=== PATIENT | female | born 1955 | race Caucasian/White ===

== ENCOUNTER → 2023-09-05 | Outpatient (CLI) | payer MEDICARE ==
[2023-09-05 16:20] LABS: ALT 61 U/L (8-44); AST 84 U/L (13-35); Albumin 4.1 g/dL (3.8-4.9); Albumin/Globulin Ratio 1.28 Ratio (1.60-3.17); Alkaline Phosphatase 73 U/L (41-126); Amylase 43 U/L (23-121); BUN/Creat Ratio 25.14 Ratio (12.00-20.00); Blood Urea Nitrogen 17.6 mg/dL (9.0-27.0); Calcium 10.1 mg/dL (8.7-10.3); Carbon Dioxide 27.1 mmol/L (21.6-31.8); Chloride 106 mmol/L (96-109); Globulin 3.2 g/dL (1.6-3.3); Glucose 117 mg/dL (70-110); Lipase 31 U/L (14-63); Potassium 4.9 mmol/L (3.5-5.5); Sodium 142 mmol/L (135-145); Total Bilirubin 0.5 mg/dL (0.3-1.2); Total Protein 7.3 g/dL (6.2-8.2)
[2023-09-05 16:25] LABS: Hepatitis A Antibody IgM Nonreactive (Nonreactive); Hepatitis B Core IgM Nonreactive (Nonreactive); Hepatitis B Surface Antigen Nonreactive (Nonreactive); Hepatitis C IgG Antibody Nonreactive (Nonreactive)
== END | disposition home or self-care (01) ==
LOC: LABWHC1 08:38
PROVIDERS: ATTEND Nurse Practitioner Gerontology
DX: R74.01 Elevation of levels of liver transaminase levels (principal)
CPT/HCPCS: 36415; 80053; 80074; 82150; 83690

== ENCOUNTER → 2023-10-01 | Outpatient (CLI) | payer MEDICARE ==
[2023-10-01 18:42] LABS: Basophils # (A) 0.11 X 10*3/uL (0.00-0.10); Basophils % (A) 1.3 %; Eosinophils # (A) 0.25 X 10*3/uL (0.04-0.35); Eosinophils % (A) 2.9 %; HCT 45.5 % (37.2-46.3); HGB 13.5 g/dL (12.0-15.0); Lymphocytes % (A) 23.2 %; MCH 27.5 pg (27.0-32.0); MCHC 29.7 g/dL (32.0-37.0); MCV 92.7 FL (80.0-97.0); Mean Platelet Volume 12.1 FL (9.5-12.2); Monocytes # (A) 0.68 X 10*3/uL (0.20-1.00); Monocytes % (A) 7.9 %; NRBC Per 100 WBC 0 X 10*3/uL (0.00-0.01); Neutrophils # (A) 5.55 X 10*3/uL (1.80-7.70); Neutrophils % (A) 64.4 %; Platelet Count 223 X 10*3/uL (140-440); RBC 4.91 X 10*6/uL (4.10-5.20); RDW 16.3 % (11.5-14.5); WBC 8.62 X 10*3/uL (4.50-10.00)
[2023-10-01 20:25] LABS: ALT 32 U/L (8-44); AST 49 U/L (13-35); Albumin 4.3 g/dL (3.8-4.9); Albumin/Globulin Ratio 1.43 Ratio (1.60-3.17); Alkaline Phosphatase 83 U/L (41-126); BUN/Creat Ratio 26.57 Ratio (12.00-20.00); Blood Urea Nitrogen 18.6 mg/dL (9.0-27.0); Calcium 10.6 mg/dL (8.7-10.3); Carbon Dioxide 24.6 mmol/L (21.6-31.8); Chloride 103 mmol/L (96-109); Glucose 113 mg/dL (70-110); Potassium 4.8 mmol/L (3.5-5.5); Sodium 140 mmol/L (135-145); Total Bilirubin 0.5 mg/dL (0.3-1.2); Total Protein 7.3 g/dL (6.2-8.2)
== END | disposition home or self-care (01) ==
LOC: LABWHC1 08:34
DX: M06.00 Rheumatoid arthritis without rheumatoid factor, unspecified site (principal)
CPT/HCPCS: 36415; 80053; 85025; 86140

== ENCOUNTER → 2023-11-30 | Outpatient (CLI) | payer MEDICARE | END | disposition home or self-care (01) | LOC: LABWHC1 11:30 | PROVIDERS: ATTEND Specialist | DX: Z53.9 Procedure and treatment not carried out, unspecified reason (principal) ==

== ENCOUNTER → 2024-03-30 | Outpatient (CLI) | payer MEDICARE ==
[2024-03-30 09:44] VITALS: BP 125/82; PULSE 73; RESP 18; TEMP 96.7
--- NOTE | 2024-04-01 07:59 | P.PAINPG ---
Objective - Vital Signs Vital signs: Intake & Output 03/29/24 03/30/24 03/30/24 18:59 06:59 18:59 Weight 185 kg PQRS Measure Charge Sheet Comment: HISTORY OF PRESENT ILLNESS: A 68 yr old female presents today w severe and chronic LBP > 4 yrs secondary to radiculopathy, spondylosis and facet arthropathy without myelopathy for medication refills. Pt states pain level is provoked at 4-6 /10 in intensity, constant, localized in the lumbar spine, predominantly axial, sharp in character w occasional shooting pain towards the back of the LEs. Pain is provoked by over activity. Pain is alleviated by PT x 12 wks which she is currently in, medications, topical, use of a walker for ambulatory assistance, repositioning and rest . Will incr quantity to #90 as pt needs a little more while in PT. Interventional procedures include Medications include Tyl #3 #90, Neurontin, Advil REVIEW OF ORGAN SYSTEMS: CONSTITUTIONAL: No fevers or chills. No recent weight loss. NEUROLOGICAL: + numbness and tingling along the distal extremities. No seizure disorders or headaches. MUSCULOSKELETAL: + pain PSYCHIATRIC: Denies current depression or suicidal thoughts. Physical Examinations : Constitutional : Cooperative , not in acute distress . Neurologic : Cranial nerve II to XII intact. No focal neurological deficits. Psychiatric : alert & oriented x 3. Matching mood & appropriate affect. Judgment & insight intact. Musculoskeletal : Cervical Spine Motor strength in the deltoid and bic eps: Normal right side. Normal Left side Motor strength biceps and the wrist extensors: Normal right side . Normal left side Motor strength in the triceps muscle: Normal right side. Normal left side Deep tendon reflexes: Normal at the biceps. Normal at Brachioradialis. Normal at triceps Vertebral body tenderness to deep palpation over Cervical facet loading test: positive bilaterally Spurling test: positive bilaterally Neck distraction test: positive bilaterally Rebecca sign: positive bilaterally Lumbar spine Motor strength lower extremities ,thigh and legs 5/5 Right side , 5/5 Left side Deep tendon reflexes : Normal Knee Jerk. Normal Ankle Jerk Vertebral body tenderness over Egan Test positive Lumbar facet Loading Test: positive Right / positive Left Range of motion of the lumbar spine Flexion 30 degrees, extension 10 degrees Straight Leg Raise test: Left/ Right positive at degrees Radha test: positive right / positive left. Severe tenderness over the Sacroiliac j oint on the Right / Left sides Isaiahlen test: positive bilaterally Seated flexion test: positive bilaterally. Sacral spine : Severe tenderness over the Sacroiliac joint: right side / left side Range of motion: Flexion of the lumbar spine <60 degrees Range of motion: Extension of the lumbar spine <20 degrees Gaenslen's Test positive Radha test: positive right side / left side Thigh Thrust Test Sacral Thrust Test Imaging: MRI non contrast lumbar spine from May 2019 reviewed MRI non contrast of the cervical spine from Oct 2021 reviewed Assessment/ Plan : L5-S1 radiculopathy, PCDF C5-C7 Recommendation of medication management. Opiate/ narcotic agreement signed 02/03/24. Refilled Tylenol #3 #90 w 1 RF. Use, side effects, adverse reactions, safe storage discussed. UDS collected 03/30/24. All questions answered. I have spent greater than 30 minutes on patient care today. Dr Cisse was available by phone for the evaluation of this patient. The time was used to review the medical records including relevant urine studies and Prescription history (MAPs), review of the available imaging, evaluation and examination of the patient, coordination of care with the medical staff and if applicable referring physicians, as well as creation of the medical record - Pain Location Lower Back Non-Pharmacological Interventions: Physical Therapy Pharmacological Interventions: PRN Medication PQRS Narrative: Hx Alcohol Use (MH) No Home Medications: Ambulatory Orders Acetaminophen-Codeine 300-30mg [Tylenol w/codeine #3] 1 tab PO TID PRN 30 Days #90 tablet 03/30/24 Controlled Substance Measures - Controlled Substance Measures Is patient prescribed a controlled substance at discharge?: Yes When asked, does pt state using other controlled substances?: Yes If prescribed controlled substance>3 days was MAPS reviewed?: Yes
== END ==
LOC: PNWHC3 09:27
PROVIDERS: ATTEND Specialist
DX: M47.27 Other spondylosis with radiculopathy, lumbosacral region (principal); M43.22 Fusion of spine, cervical region
CPT/HCPCS: 80307; G0463; 99211

== ENCOUNTER → 2024-04-15 | Outpatient (CLI) | payer MEDICARE ==
--- NOTE | 2024-04-15 08:08 | XR ---
EXAMINATION TYPE: XR Hip Complete LT DATE OF EXAM: 04/15/2024 COMPARISON: NONE CLINICAL INDICATION: Female, 68 years old with history of M25.552 PAIN IN LEFT HIP; TECHNIQUE: 2 views submitted FINDINGS: There is no evidence of erosive change or acute fracture. Diffuse demineralization. Mild hypertrophic arthropathy. No erosive changes. Vascular phleboliths noted. IMPRESSION: 1. 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 [facility], , 04/15/2024 8:06 AM
== END | disposition home or self-care (01) ==
LOC: RADXRMAIN 07:29
PROVIDERS: ATTEND Internal Medicine
DX: M16.12 Unilateral primary osteoarthritis, left hip (principal)
CPT/HCPCS: 73502

== ENCOUNTER → 2024-04-15 | Outpatient (CLI) | payer MEDICARE ==
--- NOTE | 2024-04-16 08:22 | US ---
EXAMINATION TYPE: US pelvic complete DATE OF EXAM: 04/15/2024 COMPARISON: NONE CLINICAL INDICATION: Female, 68 years old with history of R10.32 LLQ PAIN; Left side pain. Hx of hughes lyndsey and right ovary removed. TECHNIQUE: Transabdominal (TA). Transabdominal grayscale sonographic images of the pelvis were acquired. Doppler imaging: Not perfor med. FINDINGS: Date of LMP: Unknown EXAM MEASUREMENTS: Left Ovary: 2.4 x 1.2 x 1.4 cm 1. Uterus: Surgically absent 2. Endometrium: Surgically absent 3. Right Ovary: Surgically absent 4. Left Ovary: wnl 5. Bilateral Adnexa: no free fluid 6. Posterior cul-de-sac: no free fluid IMPRESSION: Postoperative pelvis. [facility], , 04/16/2024 8:20 AM
== END | disposition home or self-care (01) ==
LOC: RADUSWWP 06:39
PROVIDERS: ATTEND Internal Medicine
DX: R10.32 Left lower quadrant pain (principal); Z90.721 Acquired absence of ovaries, unilateral
CPT/HCPCS: 76856

== ENCOUNTER → 2024-04-22 | Outpatient (CLI) | payer MEDICARE ==
[2024-04-22 14:16] VITALS: BP 131/84; PULSE 71; RESP 19; TEMP 97.8
--- NOTE | 2024-04-22 15:07 | P.PAINPG ---
PQRS Measure Charge Sheet Comment: HISTORY OF PRESENT ILLNESS: A 68 yr old female presents today w severe and chronic LBP > 4 yrs secondary to radiculopathy, spondylosis and facet arthropathy without myelopathy for evaluation. Pt states pain level is provoked at 9 /10 in intensity, constant, localized in the lumbar spine, predominantly axial, sharp in character w occasional shooting pain towards the back of the L hip and LLE. Pain is provoked by over activity. Pain is alleviated by PT x 14 wks which she is currently in, medications, topical, use of a walker for ambulatory assistance, repositioning and rest . Interventional procedures include Medications include Tyl #3 #90, Neurontin, Advil REVIEW OF ORGAN SYSTEMS: CONSTITUTIONAL: No fevers or chills. No recent weight loss. NEUROLOGICAL: + numbness and tingling along the distal extremities. No seizure disorders or headaches. MUSCULOSKELETAL: + pain PSYCHIATRIC: Denies current depression or suicidal thoughts. Physical Examinations : Constitutional : Cooperative , not in acute distress . Neurologic : Cranial nerve II to XII intact. No focal neurological deficits. Psychiatric : alert & oriented x 3. Matching mood & appropriate affect. Judgment & insight intact. Musculoskeletal : Cervical Spine Motor strength in the deltoid and biceps: Normal right side. Normal Left side Motor strength biceps and the wrist extensors: Normal right side . Normal left side Motor strength in the triceps muscle: Normal right side. Normal left side Deep tendon reflexes: Normal at the biceps. Normal at Brachioradialis. Normal at triceps Vertebral body tenderness to deep palpation over Cervical facet loading test: positive bilaterally Spurling test: positive bilaterally Neck distraction test: positive bilaterally Rebecca sign: positive bilaterally Lumbar spine Motor strength lower extremities ,thigh and legs 5/5 Right side , 5/5 Left side Deep tendon reflexes : Normal Knee Jerk. Normal Ankle Jerk Vertebral body tenderness over L5 Egan Test positive L4-L5, L5-S1 Lumbar facet Loading Test: positive Right / positive Left Range of motion of the lumbar spine Flexion 30 degrees, extension 10 degrees Straight Leg Raise test: Left/ Right positive at degrees Radha test: positive right / positive left. Severe tenderness over the Sacroiliac joint on the Right / Left sides Gaenslen test: positive bilaterally Seated flexion test: positive bilaterally. Sacral spine : Severe tenderness over the Sacroiliac joint: right side / left side Range of motion: Flexion of the lumbar spine <60 degrees Range of motion: Extension of the lumbar spine <20 degrees Gaenslen's Test positive Radha test: positive right side / left side Thigh Thrust Test Sacral Thrust Test Imaging: MRI non contrast lumbar spine from May 2019 reviewed MRI non contrast of the cervical spine from Oct 2021 reviewed Assessment/ Plan : L5-S1 radiculopathy, PCDF C5-C7 Recommendation of L TFESI L4-L5, L5-S1 #1. Risks, benefits of procedure discussed and pt verbalized understanding. Protocol for discontinaution / continuation of medications davey procedure discussed. Awaiting medical clearance of Tigre from Dr Apple. Opiate/ narcotic agreement signed 02/03/24. Ample supply of Tylenol #3 #90 w 1 RF. Use, side effects, adverse reactions, safe storage discussed. UDS from 03/30/24 reviewed and consistent. All questions answered. I have spent greater than 30 minutes on patient care today. Dr Cisse was available by phone for the evaluation of this patient. The time was used to review the medical records including relevant urine studies and Prescription history (MAPs), review of the available imaging, evaluation and examination of the patient, coordination of care with the medical staff and if applicable referring physicians, as well as creation of the medical record PQRS Narrative: Narcotic Agreement Date Signed 03/30/24 Hx Alcohol Use (MH) No Home Medications: Ambulatory Orders Acetaminophen-Codeine 300-30mg [Tylenol w/codeine #3] 1 tab PO TID PRN 30 Days #90 tablet 03/30/24 Controlled Substance Measures - Controlled Substance Measures Is patient prescribed a controlled substance at discharge?: No
== END ==
LOC: PNWHC3 13:50
PROVIDERS: ATTEND Specialist
DX: M47.27 Other spondylosis with radiculopathy, lumbosacral region (principal); M25.552 Pain in left hip
CPT/HCPCS: 99211

== ENCOUNTER 2024-05-22 12:13 | Day surgery (SDC) | payer MEDICARE ==
[~2024-05-22 12:13] MED LIST: LACTATED RINGERS 1,000 ML IV SCH
[2024-05-22 12:46] LABS: Glucose,Whole Blood 159 mg/dL (70-110)
[2024-05-22 12:50] VITALS: TEMP 97.4
[2024-05-22] MEDS ORDERED: IOPAMIDOL M200 10 ML VIAL ONE (13:16)
[2024-05-22] MEDS ORDERED: methylPREDNISolone ACETATE 80 MG/ML 1 ML VIAL ONE (13:16)
--- NOTE | 2024-05-22 13:28 | P.PCN ---
Date of Procedure: 05/22/24 Procedure(s) Performed: PREOPERATIVE DIAGNOSIS: 1-Lumbar radiculopathy . POSTOPERATIVE DIAGNOSIS: 1-lumbar radiculopathy. PROCEDURE 1. Transforaminal epidural steroid injection under fluoroscopic guidance at left L4-5,and left L5-S1 level. (Fluoroscopy images in radiology Department ) 2. Lumbar epidurogram . ANESTHESIA: Local with 1% lidocaine 3 ml. EBL: Minimal PROCEDURE INDICATION: The patient with low back pain and radiculopathy symptoms unresponsive to conservative treatment. PROCEDURE DESCRIPTION / TECHNIQUE: The patient was seen and identified in the preoperative area. Risks, benefits, complications, and alternatives were discussed with the patient. The patient agreed to proceed with the procedure and signed the consent. IV was started, and vital signs were stable. Patient was taken to the OR and time out was completed. The patient was placed in the prone position on procedure table and a pillow was placed under the abdomen to reduce lumbar lordosis. The lumbosacral area was prepped and draped in the usual sterile fashion. Critical pause was taken. Vital signs were closely monitored during the procedure. Using oblique fluoroscopy, the chin of the ``Miko dog at left L4-5 level was identified, and the skin and deeper tissues just below was localized with 1% lidocaine. Subsequently, a 22-gauge 5-inch spinal needle was advanced under a tunneled view fluoroscopic guidance just underneath the chin of the ``Miko dog at the left L4-5 Under lateral fluoroscopy, the needle was then advanced to the posterior border of the interforaminal space. After negative aspiration of CSF and blood and with no paresthesias, 1 mL Isovue 200 contrast dye was injected excellent epidurogram and outlining of the nerve root Subsequently, 3 mL of block solution containing 20 mg Depo-Medrol and 2 mL of 0.9% normal saline PF was injected. Needle was removed and the same procedure was repeated at the left L5-S1 level. At the end of the procedure, skin was cleansed, and bandages were applied. COMPLICATIONS:none DISPOSITION / PLANS: The patient was placed in a supine position and transferred to the recovery area in a stable condition for observation. There was no evidence of lower extremity motor or sensory deficit after the procedure. Patient was discharged from the recovery room after meeting discharge criteria. Home discharge instructions were given to the patient by the staff. The patient was reexamined prior to discharge. Patient held the Eliquis for 72 hours
[2024-05-22 13:36] VITALS: RESP 18
--- NOTE | 2024-05-22 13:41 | FL ---
EXAMINATION TYPE: FL guided pain mgmt statistic DATE OF EXAM: 05/22/2024 FLUOROSCOPY 5.8 FL [id number] DAP TRANSFORAMINAL lumbar epidural injection 2 images are submitted. [facility], , 05/22/2024 1:39 PM
[2024-05-22 13:58] VITALS: BP 124/65; PULSE 64
== END 2024-05-22 13:56 | disposition home or self-care (01) ==
LOC: ORPAIN 12:13
PROVIDERS: ATTEND Specialist
DX: M54.16 Radiculopathy, lumbar region (principal); E11.9 Type 2 diabetes mellitus without complications; I48.91 Unspecified atrial fibrillation; Z79.01 Long term (current) use of anticoagulants; Z88.2 Allergy status to sulfonamides; Z79.899 Other long term (current) drug therapy; Z88.8 Allergy status to other drugs, medicaments and biological substances; Z79.84 Long term (current) use of oral hypoglycemic drugs
CPT/HCPCS: 64483; 64484

== ENCOUNTER → 2024-05-25 | Outpatient (CLI) | payer MEDICARE ==
[2024-05-25 10:59] VITALS: BP 142/81; PULSE 58; RESP 16; TEMP 98
--- NOTE | 2024-05-25 17:17 | P.PAINPG ---
PQRS Measure Charge Sheet Comment: HISTORY OF PRESENT ILLNESS: A 68 yr old female presents today w severe and chronic LBP > 4 yrs secondary to radiculopathy, spondylosis and facet arthropathy without myelopathy for medication refills. Pt states pain level is provoked at 6 /10 in intensity, constant, localized in the lumbar spine, predominantly axial, sharp in character w occasional shooting pain towards the back of the L hip and LLE. Pain is provoked by over activity. Pain is alleviated by PT x 16 wks which ended in Apr 2024, physician guided stretches daily since Apr 2024, medications, topical, use of a walker for ambulatory assistance, repositioning and rest . Interventional procedures include L TFESI L4-L5, L5-S1 x1 (05/22/24) Medications include Tyl #3 #90, Neurontin, Advil REVIEW OF ORGAN SYSTEMS: CONSTITUTIONAL: No fevers or chills. No recent weight loss. NEUROLOGICAL: + numbness and tingling along the distal extremities. No seizure disorders or headaches. MUSCULOSKELETAL: + pain PSYCHIATRIC: Denies current depression or suicidal th oughts. Physical Examinations : Constitutional : Cooperative , not in acute distress . Neurologic : Cranial nerve II to XII intact. No focal neurological deficits. Psychiatric : alert & oriented x 3. Matching mood & appropriate affect. Judgment & insight intact. Musculoskeletal : Cervical Spine Motor strength in the deltoid and biceps: Normal right side. Normal Left side Motor strength biceps and the wrist extensors: Normal right side . Normal left side Motor strength in the triceps muscle: Normal right side. Normal left side Deep tendon reflexes: Normal at the biceps. Normal at Brachioradialis. Normal at triceps Vertebral body tenderness to deep palpation over Cervical facet loading test: positive bilaterally Spurling test: positive bilaterally Neck distraction test: positive bilaterally Rebecca sign: positive bilaterally Lumbar spine Motor strength lower extremities ,thigh and legs 5/5 Right side , 5/5 Left side Deep tendon reflexes : Normal Knee Jerk. Normal Ankle Jerk Vertebral body tenderness over L5 Egan Test positive L4-L5, L5-S1 Lumbar facet Loading Test: positive Right / positive Left Range of motion of the lumbar spine Flexion 30 degrees, extension 10 degrees Straight Leg Raise test: Left/ Right positive at degrees Radha test: positive right / positive left. Severe tenderness over the Sacroiliac joint on the Right / Left sides Gaenslen test: positive bilaterally Seated flexion test: positive bilaterally. Sacral spine : Severe tenderness over the Sacroiliac joint: right side / left side Range of motion: Flexion of the lumbar spine <60 degrees Range of motion: Extension of the l umbar spine <20 degrees Gaenslen's Test positive Radha test: positive right side / left side Thigh Thrust Test Sacral Thrust Test Imaging: MRI non contrast lumbar spine from May 2019 reviewed MRI non contrast of the cervical spine from Oct 2021 reviewed Assessment/ Plan : L5-S1 radiculopathy, PCDF C5-C7 Recommendation of medication management. Opiate/ narcotic agreement signed 02/03/24. Refill Tylenol #3 #90 w 1 RF. Use, side effects, adverse reactions, safe storage discussed. UDS from 03/30/24 reviewed and consistent. All questions answered. I have spent greater than 30 minutes on patient care today. Dr Cisse was available by phone for the evaluation of this patient. The time was used to review the medical records including relevant urine studies and Prescription history (MAPs), review of the available imaging, evaluation and examination of the patient, coordination of care with the medical staff and if applicable referring physicians, as well as creation of the medical record PQRS Narrative: Narcotic Agreement Date Signed 04/22/24 Hx Alcohol Use (MH) No Home Medications: Ambulatory Orders Apixaban [Eliquis] 5 mg PO BID 05/18/24 Carbidopa-Levodopa 25-100 mg [Sinemet 25-100] 1 each PO QID 05/18/24 Dapagliflozin Propanediol [Farxiga] 10 mg PO DAILY 05/18/24 Dofetilide [Tikosyn] 250 mcg PO Q12HR 05/18/24 Levothyroxine Sodium [Synthroid] 175 mcg PO DAILY 05/18/24 Metoprolol Succinate (ER) [Toprol Xl] 25 mg PO 1500 05/18/24 Omeprazole [PriLOSEC] 20 mg PO AC-BRKFST 05/18/24 Propranolol [Inderal] 20 mg PO 1500 05/18/24 Sacubitril/Valsartan [Entresto 49 mg-51 mg Tablet] 1 each PO BID 05/18/24 metHOTREXate sodium [Methotrexate] 30 mg PO LEONARD 05/18/24 predniSONE 5 mg PO DAILY 05/18/24 Acetaminophen-Codeine 300-30mg [Tylenol w/codeine #3] 1 tab PO TID PRN 30 Days #90 tablet 05/25/24 Controlled Substance Measures - Controlled Substance Measures Is patient prescribed a controlled substance at discharge?: Yes When asked, does pt state using other controlled substances?: Yes If prescribed controlled substance>3 days was MAPS reviewed?: Yes
== END ==
LOC: PNWHC3 09:24
PROVIDERS: ATTEND Specialist
DX: M54.17 Radiculopathy, lumbosacral region (principal); M43.22 Fusion of spine, cervical region; G89.29 Other chronic pain; Z88.6 Allergy status to analgesic agent; Z88.2 Allergy status to sulfonamides; Z88.8 Allergy status to other drugs, medicaments and biological substances
CPT/HCPCS: 99211

== ENCOUNTER → 2024-06-08 | Outpatient (CLI) | payer MEDICARE ==
--- NOTE | 2024-06-08 15:45 | CT ---
EXAMINATION TYPE: CT sinus wo con CT DLP: rhinitis x 1 year mGycm, Automated exposure control for dose reduction was used. DATE OF EXAM: 06/08/2024 3:38 PM COMPARISON: None. CLINICAL INDICATION:Female, 68 years old with history of J31.0 CHRONIC RHINITIS; PHH, 530.6 CONTRAST: None. TECHNIQUE: Multiple thin axial images were obtained through the paranasal sinuses without the use of IV contrast. Additional coronal and sagittal reformatted images were submitted for evaluation. FINDINGS: Frontal sinuses: Normally developed and aerated. Frontal Recess: Clear Maxillary Sinuses: Normally developed and aerated. Maxillary Infundibula([facility]): Clear, No Sravan cells identified. Ethmoid sinuses: Normally developed and aerated. Ethmoidal notch: Protected and abutting the lateral lamina. Sphenoid sinuses: Normally developed and aerated. There is conchal sphenoid sinus pneumatization with out evidence of dehiscence. No dehiscence of carotid canal. No evidence of optic nerve dehiscence wi thin the sphenoid sinus. No evidence of Onodi cells. Sphenoethmoidal recesses: Clear. Nasal septum: Within normal limits.. Nasal Turbinates: Within normal limits. Mastoid air cells & middle ears: The air cells are clear. The middle ears are grossly unremarkable. Modified Soft tissues & Brain: Partially seen without gross abnormality. Globes are intact. Other: Cribriform plate demonstrates symmetric Keros classification type 1 cribriform plate. No evidence of bony dehiscence of skull base. Lamina papyracea is intact without evidence of remote orbital fracture or orbital prolapse into the e thmoid sinus. IMPRESSION: 1. No significant mucosal sinus disease. 2. The ostiomeatal units, frontonasal and sphenoethmoidal recesses are clear. [facility], , 06/08/2024 3:43 PM
== END | disposition home or self-care (01) ==
LOC: RADCTMAIN 15:23
PROVIDERS: ATTEND Internal Medicine
DX: J31.0 Chronic rhinitis (principal)
CPT/HCPCS: 70486

== ENCOUNTER → 2024-08-06 | Outpatient (CLI) | payer MEDICARE ==
[2024-08-06 10:23] VITALS: BP 137/78; PULSE 70; RESP 18; TEMP 98.6
--- NOTE | 2024-08-06 14:09 | P.PAINPG ---
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 Pt states pain level is provoked at 9-10 /10 in intensity, constant, localized in the lumbar spine, predominantly axial, sharp in character w occasional shooting pain towards the back of the L hip and LLE. Pain is provoked by over activity. Pain is alleviated by PT x 16 wks which ended in Apr 2024, physician guided stretches daily since Apr 2024, medications, topical, use of a walker for ambulatory assistance, repositioning and rest . Interventional procedures include L TFESI L4-L5, L5-S1 x1 (05/22/24) Medications include Tyl #3 #90, Neurontin, Advil REVIEW OF ORGAN SYSTEMS: CONSTITUTIONAL: No fevers or chills. No recent weight loss. NEUROLOGICAL: + numbness and tingling along the distal extremities. No seizure disorders or headaches. MUSCULOSKELETAL: + pain PSYCHIATRIC: Denies current depression or suicidal thoughts. Physical Examinations : Constitutional : Cooperative , not in acute distress . Neurologic : Cranial nerve II to XII intact. No focal neurological deficits. Psychiatric : alert & oriented x 3. Matching mood & appropriate affect. Judgment & insight intact. Musculoskeletal : Cervical Spine Motor strength in the deltoid and biceps: Normal right side. Normal Left side Motor strength biceps and the wrist extensors: Normal right side . Normal left side Motor strength in the triceps muscle: Normal right side. Normal left side Deep tendon reflexes: Normal at the biceps. Normal at Brachioradialis. Normal at triceps Vertebral body tenderness to deep palpation over Cervical facet loading test: positive bilaterally Spurling test: positive bilaterally Neck distraction test: positive bilaterally Rebecca sign: positive bilaterally Lumbar spine Motor strength lower extremities ,thigh and legs 5/5 Right side , 5/5 Left side Deep tendon reflexes : Normal Knee Jerk. Normal Ankle Jerk Vertebral body tenderness over L5 Egan Test positive BL L5-S1 Lumbar facet Loading Test: positive Right / positive Left Range of motion of the lumbar spine Flexion 30 degrees, extension 10 degrees Straight Leg Raise test: Left/ Right positive at degrees Radha test: positive right / positive left. Severe tenderness over the Sacroiliac joint on the Right / Left sides Gaenslen test: positive bilaterally Seated flexion test: positive bilaterally. Sacral spine : Severe tenderness over the Sacroiliac joint: right side / left side Range of motion: Flexion of the lumbar spine <60 degrees Range of motion: Extension of the lumbar spine <20 degrees Gaenslen's Test positive Radha test: positive right side / left side Thigh Thrust Test Sacral Thrust Test Imaging: MRI non contrast lumbar spine from May 2019 reviewed MRI non contrast of the cervical spine from Oct 2021 reviewed Assessment/ Plan : L5-S1 radiculopathy, PCDF C5-C7 Recommendation of BL TFESI L5-S1 #1 and medication management. Risks, benefits of procedure discussed and patient verbalized understanding. Protocol for discontinuation/continuation of medication surrounding procedure discussed. Opiate/ narcotic agreement signed 02/03/24. Refill Tylenol #3 #90 w 1 RF. Use, side effects, adverse reactions, safe storage discussed. UDS from 03/30/24 reviewed and consistent. All questions answered. I have spent greater than 30 minutes on patient care today. Dr Cisse was available by phone for the evaluation of this patient. The time was used to review the medical records including relevant urine studies and Prescription history (MAPs), review of the available imaging, evaluation and examination of the patient, coordination of care with the medical staff and if applicable referring physicians, as well as creation of the medical record - Pain Location Lower Back Pharmacological Interventions: Epidural PQRS Narrative: Narcotic Agreement Date Signed 04/22/24 Hx Alcohol Use (MH) No Home Medications: Ambulatory Orders Apixaban [Eliquis] 5 mg PO BID 05/18/24 Carbidopa-Levodopa 25-100 mg [Sinemet 25-100] 1 each PO QID 05/18/24 Dapagliflozin Propanediol [Farxiga] 10 mg PO DAILY 05/18/24 Dofetilide [Tikosyn] 250 mcg PO Q12HR 05/18/24 Levothyroxine Sodium [Synthroid] 175 mcg PO DAILY 05/18/24 Metoprolol Succinate (ER) [Toprol Xl] 25 mg PO 1500 05/18/24 Omeprazole [PriLOSEC] 20 mg PO AC-BRKFST 05/18/24 Propranolol [Inderal] 20 mg PO 1500 05/18/24 Sacubitril/Valsartan [Entresto 49 mg-51 mg Tablet] 1 each PO BID 05/18/24 metHOTREXate sodium [Methotrexate] 30 mg PO LEONARD 05/18/24 predniSONE 5 mg PO DAILY 05/18/24 Acetaminophen-Codeine 300-30mg [Tylenol w/codeine #3] 1 tab PO TID PRN 30 Days #90 tablet 08/06/24 diazePAM [Valium] 5 mg PO DAILY 1 Days #2 tab 08/06/24 Controlled Substance Measures - Controlled Substance Measures Is patient prescribed a controlled substance at discharge?: Yes When asked, does pt state using other controlled substances?: No If prescribed controlled substance>3 days was MAPS reviewed?: Yes
== END ==
LOC: PNWHC3 09:25
PROVIDERS: ATTEND Specialist
DX: M54.17 Radiculopathy, lumbosacral region (principal); M43.22 Fusion of spine, cervical region; Z88.2 Allergy status to sulfonamides; Z88.8 Allergy status to other drugs, medicaments and biological substances
CPT/HCPCS: 99211

== ENCOUNTER 2024-08-14 10:26 | Day surgery (SDC) | payer MEDICARE ==
[2024-08-12 14:07] VITALS: BMI 30.1
[2024-08-14 10:55] VITALS: TEMP 97.3
[2024-08-14 11:03] LABS: Glucose,Whole Blood 134 mg/dL (70-110)
[2024-08-14] MEDS ORDERED: DEXAMETHASONE SOD PHOSPHATE 10 MG/ML 1 ML VIAL ONE (12:32)
[2024-08-14] MEDS ORDERED: IOPAMIDOL M300 15ML VIAL ONE (12:32)
--- NOTE | 2024-08-14 13:01 | P.PCN ---
Description of Procedure: PREOPERATIVE DIAGNOSIS: 1-Lumbar radiculopathy . 2-lumbar degenerative disc disease. 3-lumbar spondylosis with lumbar facet arthropathy without myelopathy POSTOPERATIVE DIAGNOSIS: 1-lumbar radiculopathy. 2-lumbar degenerative disc disease. 3-lumbar spondylosis with facet arthropathy without myelopathy PROCEDURE 1. Transforaminal epidural steroid injection under fluoroscopic guidance at BILATERAL L5-S1 level. (Fluoroscopy images stored on file in the radiology Department ) 2. Lumbar epidurogram . ANESTHESIA: Local with 1% lidocaine 5 ml. subcutaneously. Continuous pulse ox, EKG, blood pressure and verbal communication was maintained with the patient. EBL: Minimal PROCEDURE INDICATION: The patient with low back pain and radiculopathy symptoms unresponsive to conservative treatment. The patient was seen and identified in the preoperative area. Risks, benefits, complications, and alternatives were discussed with the patient. The patient agreed to proceed with the procedure and signed the consent. IV was started, and vital signs were stable. PROCEDURE DESCRIPTION / TECHNIQUE: After getting consent, patient was taken to the OR and time out was completed. The patient was placed in the prone position on procedure table and a pillow was placed under the abdomen to reduce lumbar lordosis. The lumbosacral area was prepped and draped in the usual sterile fashion. Critical pause was taken. After injecting 5 mL of plain 1% lidocaine subcutaneously, under oblique view of the fluoroscope, a 22-gauge spinal needle was introduced under the tunnel view of the fluoroscope on the RIGHT side and the needle was advanced so that the tip of the needle was at the posterior inferior quadrant of the intervertebral for amen at the lateral view of the fluoroscope and in the lateral third of the facet column in the AP view of the fluoroscope. Negative CSF, negative blood, negative paresthesia. After needle position confirmation by AP and cross table lateral view, 3 mL of Isovue-M 200 contrast was injected under continuous fluoroscope. No contrast was noted in the intrathecal or intravascular space. The epidurogram was noted. Again after repeated negative aspiration 2.5 mL solution was injected which consists 1 mL of normal saline mixed with 1.5 mL of 15 mg dexamethasone. Needle was removed . Same procedure was repeated at the LEFT side at same level , using contrast under continuous fluoroscopy and using same amount of dexamethasone. At the end of the procedure, skin was cleansed, and bandages were applied. DISPOSITION / PLANS: No complication. The patient tolerated the procedure well. The patient was placed in a supine position and transferred to the recovery area in a stable condition for observation. There was no evidence of lower extremity motor or sensory deficit after the procedure. Patient was discharged from the recovery room after meeting discharge criteria. Home discharge instru ctions were given to the patient by the staff. The patient was reexamined prior to discharge.
--- NOTE | 2024-08-14 13:12 | FL ---
EXAMINATION TYPE: FL guided pain mgmt statistic Intraoperative/procedural fluoroscopic services were provided. CLINICAL INDICATION:Female, 68 years old with history of Transforaminal Inj; , [facility] FINDINGS: Multiple fluoroscopic images demonstrating bilateral lumbar transforaminal injection. No radiographic evidence for complication. Total fluoroscopy time is 66.7 seconds. DAP: [id number] mGym2 Please see the operative/procedural note for further details. [facility], , 08/14/2024 1:10 PM
[2024-08-14 13:21] VITALS: BP 146/68; PULSE 68; RESP 16
== END 2024-08-14 13:38 | disposition home or self-care (01) ==
LOC: ORPAIN 10:26
PROVIDERS: ATTEND Pain Medicine Interventional Pain Medicine
DX: M47.26 Other spondylosis with radiculopathy, lumbar region (principal); M51.16 Intervertebral disc disorders with radiculopathy, lumbar region; I10 Essential (primary) hypertension; E11.9 Type 2 diabetes mellitus without complications; Z79.01 Long term (current) use of anticoagulants; Z79.899 Other long term (current) drug therapy; Z88.2 Allergy status to sulfonamides; Z88.8 Allergy status to other drugs, medicaments and biological substances
CPT/HCPCS: 64483; J1100; Q9967

== ENCOUNTER → 2024-09-21 | Outpatient (CLI) | payer MEDICARE ==
[2024-09-21 10:10] VITALS: BP 112/72; PULSE 77; RESP 17; TEMP 98.3
--- NOTE | 2024-09-21 15:14 | XR ---
EXAMINATION TYPE: XR lumbar spine 3V DATE OF EXAM: 09/21/2024 11:06 AM COMPARISON: None CLINICAL INDICATION: Female, 68 years old with history of [id number]; PHH, pain FINDINGS: Mild multilevel degenerative disc disease. Moderate facet arthropathy mid to lower lumbar spine. Stra ightening of the normal lumbar lordosis. Preserved alignment. Vertebral body heights are maintained. 5 lumbar type vertebral bodies. IMPRESSION: 1. Mild multilevel degenerative disc disease and moderate facet arthropathy mid to lower lumbar spine . 2. No vertebral compression collapse or malalignment. 3. Straightening of the normal lumbar lordosis could be positional or due to muscle spasm. [facility], Workstation: [facility], 09/21/2024 3:12 PM
--- NOTE | 2024-09-21 16:36 | P.PAINPG ---
PQRS Measure Charge Sheet Comment: HISTORY OF PRESENT ILLNESS: A 68 yr old female presents today w severe and chronic LBP > 4 yrs secondary to radiculopathy, spondylosis and facet arthropathy without myelopathy for medication refills and evaluation s/p BL TFESI L5-S1 #1. Pt states she experienced 80 % pain relief x 5 wks s/p procedure. Pt states pain level is provoked at 4 /10 in intensity, constant, localized in the lumbar spine, predominantly axial, sharp in character without shooting pain. Pain is provoked by over activity. Pain is alleviated by PT x 16 wks which ended in Apr 2024, physician guided stretches daily since Apr 2024, aquatherapy every other day since Aug 2024, medications, topical, use of a walker for ambulatory assistance, repositioning and rest . Interventional procedures include L TFESI L4-L5, L5-S1 x1 (05/22/24), BL TFESI L5- S1 x1 (08/11) Medications include Tyl #3 #90, Neurontin, Advil REVIEW OF ORGAN SYSTEMS: CONSTITUTIONAL: No fevers or chills. No recent weight loss. NEUROLOGICAL: + numbness and tingling along the distal extremities. No seizure disorders or headaches. MUSCULOSKELETAL: + pain PSYCHIATRIC: Denies current depression or suicidal thoughts. Physical Examinations : Constitutional : Cooperative , not in acute distress . Neurologic : Cranial nerve II to XII intact. No focal neurological deficits. Psychiatric : alert & oriented x 3. Matching mood & appropriate affect. Judgment & insight intact. Musculoskeletal : Cervical Spine Motor strength in the deltoid and biceps: Normal right side. Normal Left side Motor strength biceps and the wrist extensors: Normal right side . Normal left side Motor strength in the triceps muscle: Normal right side. Normal left side Deep tendon reflexes: Normal at the biceps. Normal at Brachioradialis. Normal at triceps Vertebral body tenderness to deep palpation over Cervical facet loading test: positive bilaterally Spurling test: positive bilaterally Neck distraction test: positive bilaterally Rebecca sign: positive bilaterally Lumbar spine Motor strength lower extremities ,thigh and legs 5/5 Right side , 5/5 Left side Deep tendon reflexes : Normal Knee Jerk. Normal Ankle Jerk Vertebral body tenderness over L5 Egan Test positive BL L5-S1 Lumbar facet Loading Test: positive Right / positive Left Range of motion of the lumbar spine Flexion 30 degrees, extension 10 degrees Straight Leg Raise test: Left/ Right positive at degrees Radha test: positive right / positive left. Severe tenderness over the Sacroiliac joint on the Right / Left sides Gaenslen test: positive bilaterally Seated flexion test: positive bilaterally. Sacral spine : Severe tenderness over the Sacroiliac joint: right side / left side Range of motion: Flexion of the lumbar spine <60 degrees Range of motion: Extension of the lumbar spine <20 degrees Gaenslen's Test positive Radha test: positive right side / left side Thigh Thrust Test Sacral Thrust Test Imaging: MRI non contrast lumbar spine from May 2019 reviewed MRI non contrast of the cervical spine from Oct 2021 reviewed Assessment/ Plan : L5-S1 radiculopathy, PCDF C5-C7 Recommendation of lumbar x ray M54.16 Has Pacemaker but prefers MRI over CT scan and would like to cardiology contacted to turn off device for MRI as has been done in the past. Opiate/ narcotic agreement signed 02/03/24. Tylenol #3 #90 w 1 RF. Use, side effects, adverse reactions, safe storage discussed. UDS from 03/30/24 reviewed and consistent. All questions answered. I have spent greater than 30 minutes on patient care today. Dr Cisse was available by phone for the evaluation of this patient. The time was used to review the medical records including relevant urine studies and Prescription history (MAPs), review of the available imaging, evaluation and examination of the patient, coordination of care with the medical staff and if applicable referring physicians, as well as creation of the medical record - Pain Location Lower Back Non-Pharmacological Interventions: Heat, Ice Pharmacological Interventions: Medication PQRS Narrative: Narcotic Agreement Date Signed 04/22/24 Hx Alcohol Use (MH) No Home Medications: Ambulatory Orders Apixaban [Eliquis] 5 mg PO BID 05/18/24 Carbidopa-Levodopa 25-100 mg [Sinemet 25-100] 1 each PO QID 05/18/24 Dofetilide [Tikosyn] 250 mcg PO Q12HR 05/18/24 Levothyroxine Sodium [Synthroid] 175 mcg PO DAILY 05/18/24 Metoprolol Succinate (ER) [Toprol Xl] 25 mg PO 1500 05/18/24 Omeprazole [PriLOSEC] 20 mg PO AC-BRKFST 05/18/24 Propranolol [Inderal] 20 mg PO 1500 05/18/24 Sacubitril/Valsartan [Entresto 49 mg-51 mg Tablet] 1 each PO BID 05/18/24 metHOTREXate sodium 30 mg PO LEONARD 05/18/24 Acetaminophen-Codeine 300-30mg [Tylenol w/codeine #3] 1 tab PO TID PRN 30 Days #90 tablet 08/06/24 Cholecalciferol [Vitamin D3 (25 Mcg = 1000 Iu)] 1 dose PO DAILY 08/12/24 Folic Acid 800 mcg PO DAILY 08/12/24 Tirzepatide [Mounjaro] 5 mg SQ LEONARD 08/12/24 diazePAM [Valium] 5 mg PO DIRECTED 08/12/24 Controlled Substance Measures - Controlled Substance Measures Is patient prescribed a controlled substance at discharge?: No
== END ==
LOC: PNWHC3 09:31
PROVIDERS: ATTEND Specialist
DX: M47.27 Other spondylosis with radiculopathy, lumbosacral region (principal); M51.360 Other intervertebral disc degeneration, lumbar region with discogenic back pain only; M43.22 Fusion of spine, cervical region; Z88.2 Allergy status to sulfonamides; Z88.8 Allergy status to other drugs, medicaments and biological substances
CPT/HCPCS: 72100; G0463; 99212

== ENCOUNTER → 2024-09-21 | Outpatient (CLI) | payer MEDICARE ==
--- NOTE | 2024-09-21 11:53 | MM ---
Reason for Exam: Screening (asymptomatic). Last mammogram was performed 1 year(s) and 9 month(s) ago. Patient History: Stereotactic Core Biopsy on the Right side. Risk Values: Kenzie 5 year model risk: 1.3%. NCI Lifetime model risk: 4.3%. Prior Study Comparison: 09/15/2020 Bilateral MG 3D screening mammo w/cad, Unknown. 03/01/2021 Bilateral MG 3D screening mammo w/cad, Unknown. 01/01/2023 Bilateral MG 3D screening mammo w/cad, [place]. Tissue Density: There are scattered areas of fibroglandular density. Findings: Analyzed By CAD. Right breast biopsy clip. Right breast: There is no suspicious group of microcalcifications or new suspicious mass. Benign-appearing calcifications right breast. Left breast: There is no suspicious group of microcalcifications or new suspicious mass. Benign-appearing calcifications left breast. Overall Assessment: Benign, BI-RAD 2 Management: Screening Mammogram of both breasts in [address] [facility] will attempt to contact patient to return for supplemental views and ultrasound if indicated. Patient should continue monthly self-breast exams. A clinical breast exam by your physician is recommended on an annual basis. This exam should not preclude additional follow-up of suspicious palpable abnormalities. Note on Kenzie scores and lifetime risk: 1. A Kenzie score greater than 3% is considered moderate risk. If this is the case, consider specialist referral to assess eligibility for a risk reducing agent. 2. If overall lifetime risk for the development of breast cancer is 20% or higher, the patient may qualify for future screening with alternating mammogram and breast MRI. [facility], , 09/21/2024 11:50 AM. Electronically signed and approved by: Zaid Campbell DO
== END | disposition home or self-care (01) ==
LOC: RADMAMWWP 10:34
PROVIDERS: ATTEND Internal Medicine
DX: Z12.31 Encounter for screening mammogram for malignant neoplasm of breast (principal); R92.323 Mammographic fibroglandular density, bilateral breasts
CPT/HCPCS: 77063; 77067

== ENCOUNTER → 2024-10-22 | Outpatient (CLI) | payer MEDICARE ==
[2024-10-22 09:27] VITALS: BP 135/79; PULSE 73; RESP 17
--- NOTE | 2024-10-26 14:22 | P.PAINPG ---
Objective - Vital Signs Vital signs: Intake & Output 10/21/24 10/22/24 10/22/24 18:59 06:59 18:59 Weight 80.286 kg PQRS Measure Charge Sheet Comment: HISTORY OF PRESENT ILLNESS: A 68 yr old female presents today w severe and chronic LBP > 4 yrs secondary to radiculopathy, spondylosis and facet arthropathy without myelopathy for medication refills and evaluation s/p BL TFESI L5-S1 #1. Pt states she experienced 80 % pain relief x 5 wks s/p procedure. Pt states pain level is provoked at 4 /10 in intensity, constant, localized in the lumbar spine, predominantly axial, sharp in character without shooting pain. Pain is provoked by over activity. Pain is alleviated by PT x 16 wks which ended in Apr 2024, physician guided stretches daily since Apr 2024, aquatherapy every other day since Aug 2024, medications, topical, use of a walker for ambulatory assistance, repositioning and rest . Interventional procedures include L TFESI L4-L5, L5-S1 x1 (05/22/24), BL TFESI L5- S1 x1 (08/11) Medications include Tyl #3 #90, Neurontin, Advil REVIEW OF ORGAN SYSTEMS: CONSTITUTIONAL: No fevers or chills. No recent weight loss. NEUROLOGICAL: + numbness and tingling along the distal extremities. No seizure disorders or headaches. MUSCULOSKELETAL: + pain PSYCHIATRIC: Denies current depression or suicidal thoughts. Physical Examinations : Constitutional : Cooperative , not in acute distress . Neurologic : Cranial nerve II to XII intact. No focal neurological deficits. Psychiatric : alert & oriented x 3. Matching mood & appropriate affect. Judgment & insight intact. Musculoskeletal : Cervical Spine Motor strength in the deltoid and biceps: Normal right side. Normal Left side Motor strength biceps and the wrist extensors: Normal right side . Normal left side Motor strength in the triceps muscle: Normal right side. Normal left side Deep tendon reflexes: Normal at the biceps. Normal at Brachioradialis. Normal at triceps Vertebral body tenderness to deep palpation over Cervical facet loading test: positive bilaterally Spurling test: positive bilaterally Neck distraction test: positive b ilaterally Rebecca sign: positive bilaterally Lumbar spine Motor strength lower extremities ,thigh and legs 5/5 Right side , 5/5 Left side Deep tendon reflexes : Normal Knee Jerk. Normal Ankle Jerk Vertebral body tenderness over L5 Egan Test positive BL L5-S1 Lumbar facet Loading Test: positive Right / positive Left Range of motion of the lumbar spine Flexion 30 degrees, extension 10 degrees Straight Leg Raise test: Left/ Right positive at degrees Radha test: positive right / positive left. Severe tenderness over the Sacroiliac joint on the Right / Left sides Gaenslen test: positive bilaterally Seated flexion test: positive bilaterally. Sacral spine : Severe tenderness over the Sacroiliac joint: right side / left side Range of motion: Flexion of the lumbar spine <60 degrees Range of motion: Extension of the lumbar spine <20 degrees Gaenslen's Test positive Radha test: positive right side / left side Thigh Thrust Test Sacral Thrust Test Imaging: MRI non contrast lumbar spine from May 2019 reviewed MRI non contrast of the cervical spine from Oct 2021 reviewed X ray lumbar spine from 09/21/24 reviewed Assessment/ Plan : L5-S1 radiculopathy, PCDF C5-C7 Recommendation of medication management. Tyl #3 #90 w 2 RF. Will have Pacemaker turned off device for MRI w upcoming appt scheduled at [facility] as has been done in the past. Opiate/ narcotic agreement signed 02/03/24. Use, side effects, adverse reactions, safe storage discussed. UDS from 03/30/24 reviewed and consistent. All questions answered. I have spent greater than 30 minutes on patient care today. Dr Cisse was available by phone for the evaluation of this patient. The time was used to review the medical records including relevant urine studies and Prescription history (MAPs), review of the available imaging, evaluation and examination of the patient, coordination of care with the medical staff and if applicable referring physicians, as well as creation of the medical record - Pain Location Lower Back Non-Pharmacological Interventions: Ice, Relaxation Technique Pharmacological Interventions: Medication, Topical Medication PQRS Narrative: Narcotic Agreement Date Signed 04/22/24 Hx Alcohol Use (MH) No Home Medications: Ambulatory Orders Apixaban [Eliquis] 5 mg PO BID 05/18/24 Carbidopa-Levodopa 25-100 mg [Sinemet 25-100] 1 each PO QID 05/18/24 Dofetilide [Tikosyn] 250 mcg PO Q12HR 05/18/24 Levothyroxine Sodium [Synthroid] 175 mcg PO DAILY 05/18/24 Metoprolol Succinate (ER) [Toprol Xl] 25 mg PO 1500 05/18/24 Omeprazole [PriLOSEC] 20 mg PO AC-BRKFST 05/18/24 Propranolol [Inderal] 20 mg PO 1500 05/18/24 Sacubitril/Valsartan [Entresto 49 mg-51 mg Tablet] 1 each PO BID 05/18/24 metHOTREXate sodium 30 mg PO LEONARD 05/18/24 Cholecalciferol [Vitamin D3 (25 Mcg = 1000 Iu)] 1 dose PO DAILY 08/12/24 Folic Acid 800 mcg PO DAILY 08/12/24 Tirzepatide [Mounjaro] 5 mg SQ LEONARD 08/12/24 diazePAM [Valium] 5 mg PO DIRECTED 08/12/24 Acetaminophen-Codeine 300-30mg [Tylenol w/codeine #3] 1 tab PO TID PRN 30 Days #90 tablet 10/22/24 Controlled Substance Measures - Controlled Substance Measures Is patient prescribed a controlled substance at discharge?: Yes When asked, does pt state using other controlled substances?: No If prescribed controlled substance>3 days was MAPS reviewed?: Yes
== END ==
LOC: PNWHC3 09:03
PROVIDERS: ATTEND Specialist
DX: M47.26 Other spondylosis with radiculopathy, lumbar region (principal); Z88.2 Allergy status to sulfonamides; Z88.8 Allergy status to other drugs, medicaments and biological substances; Z98.1 Arthrodesis status
CPT/HCPCS: 99212

== ENCOUNTER → 2024-11-18 | Outpatient (CLI) | payer MEDICARE | END | disposition home or self-care (01) | LOC: LABWHC1 10:53 | PROVIDERS: ATTEND Ophthalmology | DX: M31.6 Other giant cell arteritis (principal) | CPT/HCPCS: 36415; 85652; 86140 ==